=== PATIENT | female | born 1995 | race Caucasian/White ===

== ENCOUNTER 2017-12-20 09:44 | Emergency (ER) | payer SELFPAY ==
[~2017-12-20] VITALS: Ht 160 cm; Wt 52.2 kg
[2017-12-20 09:49] VITALS: BP_SYST 154
[2017-12-20 10:10] VITALS: BP_SYST 128
== END 2017-12-20 10:10 ==
LOC: SED 09:44
DX: S60.211A Contusion of right wrist, initial encounter (principal); F10.129 Alcohol abuse with intoxication, unspecified; R03.0 Elevated blood-pressure reading, without diagnosis of hypertension; X58.XXXA Exposure to other specified factors, initial encounter; Y93.89 Activity, other specified; Y92.89 Other specified places as the place of occurrence of the external cause; Y99.8 Other external cause status
CPT/HCPCS: 99283